=== PATIENT | male | born 1980 | race Caucasian/White ===

== ENCOUNTER 2018-08-07 16:05 | Emergency (ER) | payer MEDICAID, OTHER ==
[~2018-08-07] VITALS: Ht 170.2 cm; Wt 58.0 kg
[2018-08-07 16:09] VITALS: BP 127/85
[2018-08-07] MEDS ORDERED: BUPIVAcaine/PF 7.5mg/ml (0.75%) 10ml vial IJ ONE (16:30)
== END 2018-08-07 17:39 | disposition home or self-care (01) ==
LOC: ER 16:06
DX: S63.286A Dislocation of proximal interphalangeal joint of right little finger, initial encounter (principal); Z88.0 Allergy status to penicillin; W18.49XA Other slipping, tripping and stumbling without falling, initial encounter; Y93.89 Activity, other specified; Y92.69 Other specified industrial and construction area as the place of occurrence of the external cause; Y99.9 Unspecified external cause status
CPT/HCPCS: 26770; 73140; 99284; J3490